=== PATIENT | male | born 1945 | race African-American/Black ===

== ENCOUNTER 2019-06-06 07:49 | Day surgery (SDC) | payer BC, MEDICARE ==
[2019-06-06] MEDS ORDERED: ASPIRIN EC 325 MG TAB PO ONE (09:00)
[2019-06-06] MEDS ORDERED: SODIUM CHLORIDE 0.9% 500 ML 500 ML IV SCH (09:00)
[2019-06-06] MEDS ORDERED: HEPARIN/NS 5000 UNIT/500ML 1,000 ML IR ONE (09:47)
[2019-06-06] MEDS: LIDOCAINE (2%) 20 MG/1 ML VIAL 20 ML MDV INFILTRATI ONE ×2 (10:34→10:50)
[2019-06-06] MEDS: HEPARIN 10,000 UNITS/10 ML VIAL ONE ×2 (10:34→10:51)
[2019-06-06] MEDS: MIDAZOLAM 2 MG/2 ML INJ ONE ×2 (10:34→10:49)
[2019-06-06] MEDS: fentaNYL 100 MCG/2 ML INJ ONE ×2 (10:34→10:49)
[2019-06-06] MEDS: NITROGLYCERIN SYRINGE 3 ML ONE ×2 (10:35→10:51)
[2019-06-06] MEDS: VERAPAMIL 5 MG/2 ML INJ ONE ×2 (10:35→10:51)
--- NOTE | 2019-06-06 12:43 | Cardiac Catherization Report ---
CARDIAC CATHETERIZATION REFERRING PHYSICIAN: Dr. Lori Gupta. INDICATION FOR PROCEDURE: The patient is a very pleasant 74-year-old gentleman with multiple risk factors, abnormal stress test, and chest pain and referred for left heart catheterization. Risks, benefits, and potential alternatives explained at length prior to obtaining informed consent. PROCEDURE IN DETAIL: The patient was brought to catheterization lab in a postabsorptive state and prepped and draped in sterile fashion. Matt's test of right hand is normal. A 2 mL of 2% lidocaine was used to anesthetize the right wrist. A standard 6-Kenyan hydrophilic sheath was used to cannulate the right radial artery via modified Seldinger technique. All exchanges were performed to exchange a J-tip guidewire. JL3.5 catheter was used to engage the left main. No dampening or ventricularization. Cineangiography was performed in multiple projections. JR4 catheter was used to cross the aortic valve under fluoroscopic guidance. Left ventriculography was performed in 30 MYERS and 30 LITHUANIAN projections via hand injection and catheter flushed. Manual pullback performed in continuous pressure monitoring. Catheter used to engage the right coronary. No dampening or ventricularization. Cineangiography was performed in all projections. Root aortography was performed with hand injection. Additionally, the catheter was placed and due to difficulty placing in the left subclavian, we performed third order selective left subclavian angiography and PARKER angiography. Catheter was removed from the subclavian and body carefully over a wire. There were no complications. The patient tolerated the procedure well. I directly supervised the administration of moderate sedation from 10:40 a.m. to 11:15 a.m. with fentanyl and Versed. DATA: Aortic pressure is 160/50, LV pressure is 160, and LVP of 25 mmHg. Left ventriculography reveals [id number] global left ventricular hypokinesis, estimated ejection fraction of 35-40% and no evidence of aortic stenosis. CORONARY ANATOMY: It is a right dominant system. Right coronary with severe diffuse disease. It should be noted the entire coronary tree is heavily calcified and can be seen on fluoroscopy alone, 90% proximal and mid right coronary stenosis. Extensive [id number] collaterals identified. Left main without significant disease and bifurcates in left anterior descending and left circumflex. Left circumflex with complex calcific long mid 90-95% stenosis. LAD is a moderate-sized vessel, coursing anterior intergroove, 90% long complex mid LAD stenosis involving the large second diagonal. There is a 95% stenosis in proximal first diagonal. The left subclavian was without significant disease. No gradient. Left internal mammary artery was widely patent and normal gauge. CONCLUSIONS: 1. Severe and diffuse calcific complex triple vessel disease as aforementioned in this right dominant system. 2. Moderate severe global left ventricular hypokinesis, estimated ejection fraction of 35-40%. 3. Patent left subclavian without gradient. 4. Patent and normal caliber PARKER. 5. Root aortography without evidence of dissection or ulcer. The patient is clinically stable and chest pain free. He will be transferred to [facility] for coronary artery bypass surgery. He is stable for a transfer. Standard radial care. Results of procedure explained to the patient and family. All questions and concerns were addressed. All discussed with the referring physician, Dr. Lori Gupta. JOB# [id number] SBM/NTS
[2019-06-06 13:47] VITALS: BP 161/90
--- NOTE | 2019-06-06 13:47 | Short Stay Summary ---
Short Stay Documentation Date of service: 06/06/19 - History H&P: obtained from office - Allergies and Medications Current Medications: Allergies No Known Allergies Allergy (Unverified 06/06/19 07:49) Home Medications Medication Instructions Recorded Confirmed Last Taken Type Aspirin [Adult Aspirin] 81 mg PO DAILY 06/06/19 06/06/19 06/05/19 History Insulin Glargine [Lantus VIAL] 10 unit SUB-Q QHS 06/06/19 06/06/19 06/05/19 History Lisinopril [Zestril] 20 mg PO QDAY 06/06/19 06/06/19 06/05/19 History Simvastatin 20 mg PO DAILY 06/06/19 06/06/19 06/05/19 History carvediloL [Coreg] 25 mg PO BID 06/06/19 06/06/19 06/05/19 History glipiZIDE [Glucotrol] 10 mg PO BID 06/06/19 06/06/19 06/05/19 History Active Medications Sodium Chloride (Nacl 0.9% 500 Ml) 500 mls @ 50 mls/hr IV DIRECT DEEP Stop: 06/06/19 18:59 Last Admin: 06/06/19 08:48 Dose: 50 mls/hr Documented by: - Brief post op/procedure progress note Date of procedure: 06/06/19 Pre-op diagnosis: abnormal stress test; cp Post-op diagnosis: other (CAD) Procedure: [facility] - see dictated cath report Anesthesia: local Estimated blood loss: none Condition: stable - Hospital course Hospital course: tx to [place] - Disposition Condition at discharge: Stable Disposition: [id number] ANOTHER TYPE [facility] - Discharge Diagnoses (1) CAD (coronary artery disease) Status: Chronic Short Stay Discharge Plan Diet: low fat, low cholesterol, low salt Wound: open to air, keep clean and dry, per your surgeon's advice Follow up with: GAURAV SILVESTRE MD [Primary Care Provider] - 7 Days
== END 2019-06-06 14:10 | disposition other institution (70) ==
LOC: CATHLABREC 07:49
PROVIDERS: ATTEND Internal Medicine
DX: R07.89 Other chest pain (principal); R94.39 Abnormal result of other cardiovascular function study; I25.10 Atherosclerotic heart disease of native coronary artery without angina pectoris; E11.9 Type 2 diabetes mellitus without complications; E78.5 Hyperlipidemia, unspecified; Z79.899 Other long term (current) drug therapy; I10 Essential (primary) hypertension; Z90.49 Acquired absence of other specified parts of digestive tract; Z98.890 Other specified postprocedural states; Z79.82 Long term (current) use of aspirin; Z79.4 Long term (current) use of insulin
CPT/HCPCS: 93005; 93010; 93458; 93567; 99156; 99157; C1769; C1894; J1644; J2250; J3010; J7040; Q9967